=== PATIENT | male | born 1980 | race African-American/Black ===

== ENCOUNTER → 2018-11-14 19:00 | Outpatient (CLI) | payer OTHER, SELFPAY ==
--- NOTE | 2018-11-14 19:07 | DI.MRI.S_ITS ---
PROCEDURE: MR KNEE RT WO CON INDICATIONS: PAIN IN RIGHT KNEE TECHNIQUE: Noncontrast sagittal PD fast spin echo and T2 fast spin echo with fat saturation, sagittal 3-D FLASH with fat saturation; coronal T1 spin echo and PD fast spin echo with fat saturation, and axial PD fast spin echo with fat saturation through the knee. COMPARISON: None. FINDINGS: Image quality: Excellent. Menisci: The medial and lateral menisci demonstrate normal morphology and internal signal. The meniscal root ligaments appear intact. Cruciate ligaments: The anterior and posterior cruciate ligaments appear intact. Medial structures: The medial collateral ligament appears intact. The posterior oblique ligament, semimembranosus tendon insertions, oblique popliteal ligament, and meniscocapsular junction appear intact. Visualized portions of the pes anserinus tendons appear intact although there is mild adjacent fluid/edema raising possibility of early bursitis. Lateral structures: The lateral collateral ligament, long and short heads of the biceps femoris tendon appear intact. The popliteus tendon appears normal; the popliteofibular ligament appears intact. The posterosuperior and anteroinferior popliteomeniscal fascicles appear intact. The arcuate and fabellofibular ligaments appear intact, on either side of the lateral inferior geniculate artery. Iliotibial band appears normal. Anterior structures: The quadriceps and patellar tendons appear intact. There is age-indeterminate low-grade distal quadriceps tendinopathy. Patellar alignment is normal. No femoral trochlear dysplasia or ventral trochlear prominence. No edema in the infrapatellar fat pad. Bones and cartilage: No bone marrow contusions or fractures. Within the medial lateral compartments, and articular cartilage appears grossly intact. There is intrasubstance signal change of the weightbearing central tibial cartilage within the lateral compartment however no focal articular cartilage defect. Within the patellofemoral compartment, there is partial-thickness loss and intrasubstance signal change and fraying of the cartilage overlying the lateral patellar facet. Joint space: Small joint effusion. Tiny Singer cyst measuring 2 x 20 mm on axial image 17 series 5. No evidence of intra-articular loose bodies. IMPRESSION: Mild fluid/edema adjacent to the insertion of the pes anserinus tendons raising possibility of early bursitis. Age-indeterminate low-grade distal quadriceps tendinopathy. Mild patellofemoral chondromalacia. Small joint effusion. Tiny Singer's cyst as above. Dictated by: Dalton Dillard M.D. on 11/15/2018 at 9:32 Approved by: Dalton Dillard M.D. on 11/15/2018 at 9:38
== END ==
PROVIDERS: Visit Provider General Practice
DX: M25.561 Pain in right knee (principal); M22.41 Chondromalacia patellae, right knee; M67.863 Other specified disorders of tendon, right knee; M25.461 Effusion, right knee
CPT/HCPCS: 73721

== ENCOUNTER 2020-12-04 17:36 | Emergency (ER) | payer OTHER, SELFPAY ==
[2020-12-04 17:40] VITALS: BP 132/73; PULSE 55; RESP 18; TEMP 36.5; O2SAT 99
--- NOTE | 2020-12-04 17:44 | DI.RAD.S_ITS ---
PROCEDURE: XR CHEST 1V INDICATIONS: chest pain TECHNIQUE: One view of the chest was acquired. COMPARISON: None. FINDINGS: Surgical changes and devices: None. Lungs and pleura: Lungs are clear. No pleural effusions or pneumothorax. Mediastinum: Mediastinal contours appear normal. Heart size is normal. Bones and chest wall: No suspicious bony lesions. Overlying soft tissues appear unremarkable. IMPRESSION: No evidence acute pulmonary process. Dictated by: Zana Zamora M.D. on 12/04/2020 at 18:28 Approved by: Zana Zamora M.D. on 12/04/2020 at 18:28
--- NOTE | 2020-12-04 18:01 | ED.CHESTPAIN ---
HPI - Chest Pain General Chief Complaint: Chest Pain Stated Complaint: chest carroll front to back and left shoulder Time Seen by Provider: 12/04/20 17:53 Source: patient Mode of arrival: Ambulatory Limitations: no limitations History of Present Illness HPI narrative: 40-year-old male nonsmoker with noncontributory medical history presents with his in the chief complaint episodes of sharp and stabbing left anterior chest pain with left-sided neck and left upper back pain associated. He denies any exertional component. He denies any shortness of breath, nausea or vomiting. He denies any unexplained diaphoresis. He is not dizzy nor weak or lightheaded. He denies any injury or overuse. His pain is sharp, stabbing and worse with motion and improves with rest. MD complaint: chest pain and other Onset (ago): day(s) Duration: intermittent Pain location: left chest Severity: mild Quality: sharp Pain radiation: neck Relieving factors: rest Exacerbating factors: palpation and movement Treatments prior to arrival chest pain: none Related Data Previous Rx's Medication Instructions Recorded cyclobenzaprine 10 mg PO TID PRN #14 tab 12/04/20 ketorolac 10 mg PO Q6H PRN #14 tab 12/04/20 methylprednisolone [Medrol (Liam)] See Rx Instructions .ROUTE 12/04/20 .COMPLEX #21 ea Review of Systems Constitutional Constitutional: Denies chills, Denies fatigue, Denies fever(s), Denies frequent falls, Denies lethargy and Denies weakness Eyes Eyes: Denies change in vision, Denies eye discharge, Denies irritation and Denies loss of vision ENT Ears, Nose, Mouth, and Throat: Denies change in voice, Denies dizziness, Reports neck pain, Denies sore throat and Denies throat swelling Cardiovascular Cardiovascular: Reports chest pain, Denies irregular heart rhythm, Denies lightheadedness, Denies palpitations, Denies dyspnea, Denies dyspnea on exertion and Denies orthopnea Respiratory Respiratory: Denies cough, Denies dyspnea, Denies dyspnea on exertion and Denies wheezing Gastrointestinal Gastrointestinal: Denies abdominal pain, Denies change in bowel habits, Denies diarrhea, Denies nausea and Denies vomiting Musculoskeletal Musculoskeletal: Reports back pain, Reports neck pain and Denies numbness Integumentary/Breasts Skin/Breast: Denies pruritus, Denies erythema, Denies rash and Denies wounds Neurologic Neurologic: Denies behavioral changes, Denies confusion, Denies dizziness, Denies frequent falls, Denies loss of vision, Denies numbness and Denies weakness Psychiatric Psychiatric: Denies anxiety, Denies behavioral changes, Denies confusion, Denies depression, Denies homicidal ideation and Denies suicidal ideation Endocrine Endocrine: Denies fatigue, Denies flushing and Denies palpitations Hematologic/Lymphatic Hematologic/Lymphatic: Denies easy bruising Allergic/Immunologic Allergic/Immunologic: Denies urticaria, Denies throat swelling and Denies wheezing Patient History Social History Smoking Status: Never smoker Smoking Status: Never smoker Exam Narrative Exam Narrative: GENERAL: [40] year old patient appears stated age. Well-nourished, well-developed patient, in mild distress. HEAD: Atraumatic. Normocephalic. EYES: Pupils equal round and reactive. Extraocular motions intact. No scleral icterus. No injection or drainage. ENT: Nose without bleeding, purulent drainage. Throat without erythema, tonsillar hypertrophy or exudate. Airway patent. NECK: Trachea midline. No midline bony tenderness, there is tenderness to palpation of the left side paraspinal musculature of the upper thoracic and lower cervical. No change with axial loading CARDIOVASCULAR: Regular rate and rhythm without murmurs, gallops, or rubs. Minimal reproduction of pain on palpation of left anterior chest RESPIRATORY: Clear to auscultation. Breath sounds equal bilaterally. No wheezes, rales, or rhonchi. GASTROINTESTINAL: Abdomen soft, non-tender, nondistended. EXTREMITIES: No edema or joint tenderness. BACK: Nontender without deformity or crepitance. No flank tenderness. NEURO: AOx3. SKIN: No rash or erythema of visible areas Initial Vital Signs Initial Vital Signs: Vital Signs Temperature 97.7 F 12/04/20 17:40 Pulse Rate 55 L 12/04/20 17:40 Respiratory Rate 18 12/04/20 17:40 Blood Pressure 132/73 12/04/20 17:40 Pulse Oximetry 99 12/04/20 17:40 Scores HEART Score Heart Score history: Slightly Suspicious Heart Score EKG: Normal Heart Score Age: < 45 years old Heart Score risk factors: No known risk factors Heart Score troponin: < or = to normal limit Heart Score Total: 0 Course Orders Ordered: ED Orders 12/04/20 17:42 EKG-12 Lead Stat 12/04/20 17:44 XR chest 1V Stat 12/04/20 18:00 Complete Blood Count AUTO DIFF Stat Comprehensive Metabolic Panel Stat D Dimer Stat Lipase Stat Partial Thromboplastin Time Stat Prothrombin Time INR Stat Troponin & CK Cardiac Panel Stat Vital Signs Vital signs: Vital Signs - 8 hr 12/04/20 17:40 Temperature 97.7 F Pulse Rate 55 L Respiratory Rate 18 Blood Pressure 132/73 Pulse Oximetry 99 MDM - Chest Pain Lab Data Result diagrams: 12/04/20 18:00 12/04/20 18:00 Labs: Lab Results 12/04/20 12/04/20 12/04/20 Range/Units 18:00 18:00 18:00 WBC 6.5 (4.5-11.0) X10^3/uL RBC 5.42 (4.5-5.9) X10^6/uL Hgb 13.0 L (13.5-17.5) g/dL Hct 41.6 (41-53) % MCV 76.7 L (80-100) fL MCH 23.9 L (26-34) PG MCHC 31.2 (30-36) % RDW 13.1 (11.6-14.8) % Plt Count 193 (150-400) X10^3/uL Neut % (Auto) 46.0 L (50-75) % Lymph % (Auto) 41.2 H (25-40) % Billings % (Auto) 8.4 (3-14) % Eos % (Auto) 2.9 (2-4) % Baso % (Auto) 1.5 (0-2) % Neut # (Auto) 3000 (0567-1729) /uL Lymph # (Auto) 2700 (3866-8084) /uL Billings # (Auto) 500 (0-900) /uL Eos # (Auto) 200 (0-450) /uL Baso # (Auto) 100 (0-100) /uL PT 11.6 (10.1-12.7) SECONDS INR 1.0 (0.9-1.3) APTT 38 H (26.4-36.2) SECONDS D-Dimer (<230) ng/mL Sodium 142 (137-145) mmol/L Potassium 3.9 (3.4-5.1) mmol/L Chloride 104 (98-107) mmol/L Carbon Dioxide 29 (22-32) mmol/L BUN 20 (9-20) mg/dL Creatinine 1.12 (0.66-1.25) mg/dL Estimated GFR > 60.0 (>60) mL/min BUN/Creatinine Ratio 17.9 (6-22) Glucose 84 (70-100) mg/dL Calcium 9.5 (8.4-10.2) mg/dL Total Bilirubin 0.4 (0.2-1.3) mg/dL AST 39 (17-59) IU/L ALT 28 (<50) IU/L Alkaline Phosphatase 42 (38-126) U/L Total Creatine Kinase 780 H (55-170) U/L CK-MB (CK-2) 2.63 H (<2.37) ng/mL CK-MB (CK-2) Rel Index 0.3 L (1.5-5.0) % Troponin I < 0.012 (0.01-0.034) ng/mL Total Protein 7.5 (6.3-8.2) g/dL Albumin 4.7 (3.5-5.0) g/dL Globulin 2.8 (1.7-4.1) g/dL Albumin/Globulin Ratio 1.7 (1.0-2.8) Lipase 76 (23-300) U/L 12/04/20 Range/Units 18:00 WBC (4.5-11.0) X10^3/uL RBC (4.5-5.9) X10^6/uL Hgb (13.5-17.5) g/dL Hct (41-53) % MCV (80-100) fL MCH (26-34) PG MCHC (30-36) % RDW (11.6-14.8) % Plt Count (150-400) X10^3/uL Neut % (Auto) (50-75) % Lymph % (Auto) (25-40) % Billings % (Auto) (3-14) % Eos % (Auto) (2-4) % Baso % (Auto) (0-2) % Neut # (Auto) (6426-6176) /uL Lymph # (Auto) (4624-1735) /uL Billings # (Auto) (0-900) /uL Eos # (Auto) (0-450) /uL Baso # (Auto) (0-100) /uL PT (10.1-12.7) SECONDS INR (0.9-1.3) APTT (26.4-36.2) SECONDS D-Dimer < 200 (<230) ng/mL Sodium (137-145) mmol/L Potassium (3.4-5.1) mmol/L Chloride (98-107) mmol/L Carbon Dioxide (22-32) mmol/L BUN (9-20) mg/dL Creatinine (0.66-1.25) mg/dL Estimated GFR (>60) mL/min BUN/Creatinine Ratio (6-22) Glucose (70-100) mg/dL Calcium (8.4-10.2) mg/dL Total Bilirubin (0.2-1.3) mg/dL AST (17-59) IU/L ALT (<50) IU/L Alkaline Phosphatase (38-126) U/L Total Creatine Kinase (55-170) U/L CK-MB (CK-2) (<2.37) ng/mL CK-MB (CK-2) Rel Index (1.5-5.0) % Troponin I (0.01-0.034) ng/mL Total Protein (6.3-8.2) g/dL Albumin (3.5-5.0) g/dL Globulin (1.7-4.1) g/dL Albumin/Globulin Ratio (1.0-2.8) Lipase (23-300) U/L Imaging Data Chest x-ray: Radiologist's Impression: [address] [id number] ReportSigned Patient: Marcelo Raymundo AMR#: [id number]: 1980Acct:[id number]/Sex: 40 / MDate of Service: 12/04/20Loc: EDAccession Number: [id number] Procedure: XR chest 1V Ordering Provider: Shanice Srivastava D.O. PROCEDURE: XR CHEST 1V INDICATIONS: chest pain TECHNIQUE: One view of the chest was acquired. COMPARISON: None. FINDINGS: Surgical changes and devices: None. Lungs and pleura: Lungs are clear. No pleural effusions or pneumothorax. Mediastinum: Mediastinal contours appear normal. Heart size is normal. Bones and chest wall: No suspicious bony lesions. Overlying soft tissues appear unremarkable. IMPRESSION: No evidence acute pulmonary process. Dictated by: Zana Zamora M.D. on 12/04/2020 at 18:28 Approved by: Zana Zamora M.D. on 12/04/2020 at 18:28 ECG Data Interpretation: Sinus bradycardia, rate 54, no ST elevation, ST segmental depression, T-wave abnormalities. No ectopy. MDM Narrative Medical decision making narrative: Multiple causes of chest pain considered including CA, PE, pneumothorax, pneumonia, aortic dissection, and pleurisy. Patient reports no radiation, no diaphoresis, no provocation with exertion, and no vomiting Patient is sharp and stabbing reproducible pain of left side of neck, upper back and anterior chest. This pain is made worse with motion and with palpation. The left-sided neck pain with radiation down the arm would raise suspicion of the potential of paraspinal spasm and possible early radiculopathy. There is no measurable weakness and no ongoing radiation of pain or numbness. Ischemia considered, however there is no exertional component, no shortness of breath, nausea, diaphoresis, nonischemic EKG and troponins negative. He is low risk Discharge Plan Departure Patient Disposition: Home Clinical Impression: Atypical chest pain Acute thoracic myofascial strain Qualifiers: Encounter type: initial encounter Qualified Code(s): S29.019A - Strain of muscle and tendon of unspecified wall of thorax, initial encounter Instructions: DI for Atypical Chest Pain Activity Restrictions/Additional Instructions: *You have been diagnosed with [ atypical chest pain, thoracic strain] *What to do: *Take medications as directed *Follow up with your primary care provider in 2-3 days, call for an appointment. Let them know you were seen in the Emergency Department and that we ask that you be seen in follow up *Return to ER if you should have any new, worsening or concerning symptoms Prescriptions: New cyclobenzaprine 10 mg tablet 10 mg PO TID PRN (Reason: muscle spasm) Qty: 14 RF: 0 ketorolac 10 mg tablet 10 mg PO Q6H PRN (Reason: pain) Qty: 14 RF: 0 methylprednisolone [Medrol (Liam)] 4 mg tablets,dose pack See Rx Instructions .ROUTE .COMPLEX Qty: 21 RF: 0
[2020-12-04 18:12] LABS: Add Manual Diff / Slide Review NO; Basophils Absolute Auto 100 /uL (0-100); Basophils Percent Auto 1.5 % (0-2); Eosinophils Absolute Auto 200 /uL (0-450); Eosinophils Percent Auto 2.9 % (2-4); Hematocrit 41.6 % (41-53); Lymphocytes Absolute Auto 2700 /uL (1100-4500); Lymphocytes Percent Auto 41.2 % (25-40); Mean Corpuscular HGB Conc 31.2 % (30-36); Mean Corpuscular Hemoglobin 23.9 PG (26-34); Mean Corpuscular Volume 76.7 fL (80-100); Monocytes Absolute Auto 500 /uL (0-900); Monocytes Percent Auto 8.4 % (3-14); Neutrophils Absolute Auto 3000 /uL (1500-7000); Platelet Count 193 X10^3/uL (150-400); Red Blood Cell Count 5.42 X10^6/uL (4.5-5.9); Red Cell Distribution Width 13.1 % (11.6-14.8); White Blood Cell Count 6.5 X10^3/uL (4.5-11.0)
[2020-12-04 18:20] LABS: Prothrombin Time 11.6 SECONDS (10.1-12.7)
[2020-12-04 18:22] LABS: PTT Partial Thromboplastin Tim 38 SECONDS (26.4-36.2)
[2020-12-04 18:27] LABS: Alanine Aminotransferase 28 IU/L (<50); Albumin 4.7 g/dL (3.5-5.0); Albumin Globulin Ratio 1.7 (1.0-2.8); Alkaline Phosphatase 42 U/L (38-126); Aspartate Aminotransferase 39 IU/L (17-59); BUN Creatinine Ratio 17.9 (6-22); Bilirubin Total 0.4 mg/dL (0.2-1.3); Blood Urea Nitrogen 20 mg/dL (9-20); Calcium 9.5 mg/dL (8.4-10.2); Carbon Dioxide 29 mmol/L (22-32); Chloride 104 mmol/L (98-107); Creatine Kinase 780 U/L (55-170); Estimated Glomerular Filt Rate > 60.0 mL/min (>60); Globulin 2.8 g/dL (1.7-4.1); Glucose 84 mg/dL (70-100); HEMOLYSIS < 15 (0-50); Lipase 76 U/L (23-300); Potassium 3.9 mmol/L (3.4-5.1); Sodium 142 mmol/L (137-145); Total Protein 7.5 g/dL (6.3-8.2)
[2020-12-04 18:39] LABS: Troponin I < 0.012 ng/mL (0.01-0.034)
[2020-12-04 18:42] LABS: CKMB % Relative Index 0.3 % (1.5-5.0); Creatine Kinase MB 2.63 ng/mL (<2.37)
[2020-12-04 20:13] LABS: D Dimer < 200 ng/mL (<230)
[2020-12-04 20:32] VITALS: BP 131/77; PULSE 56; RESP 18; O2SAT 99
== END 2020-12-04 20:33 | disposition home or self-care (01) ==
PROVIDERS: Emergency Medicine; Emergency Provider Emergency Medicine
DX: S29.019A Strain of muscle and tendon of unspecified wall of thorax, initial encounter (principal); R07.89 Other chest pain
CPT/HCPCS: 36415; 71045; 80053; 82550; 82553; 83690; 84484; 85025; 85379; 85610; 85730; 93005; 99284